=== PATIENT | female | born 1960 | race Two or more races ===

== ENCOUNTER 2023-05-27 08:45 | Day surgery (SDC) | payer BC ==
[2023-05-26 13:09] LABS: Hematocrit 44.4 % (36.0-46.0); Hemoglobin 14.4 g/dL (12.2-16.2); Mean Corpuscular Hemoglobin 30.5 pg (28.0-32.0); Mean Corpuscular Hgb Conc. 32.5 g/dL (32.0-36.0); Mean Corpuscular Volume 93.9 fL (80.0-100.0); Red Blood Cells 4.73 10^6/uL (4.0-5.20); Red Cell Distribution Width 14.1 % (11.8-14.3); White Blood Cell 17.7 10^3/uL (4.4-10.8)
[2023-05-26 13:12] LABS: Urine Bacteria NONE SEEN /hpf (None Seen); Urine Blood TRACE /uL (Negative); Urine Clarity Clear (Clear); Urine Protein, UAD Negative (Negative); Urine Specific Gravity 1.021 (1.001-1.035); Urine Urobilinogen Normal (Negative); Urine WBC 7 /hpf (0 - 5)
[2023-05-26 13:15] LABS: Band Neutrophils % (manual) 0; Basophils % (manual) 0 (0.0-2.0); Blast Cells 0; Eosinophils % (manual) 0 (0-7); INR 0.98 (0.9-1.15); Metamyelocytes % 0; Myelocytes % 0; Partial Thromboplastin Time 24.8 SEC (24.5-34.5); Promyelocytes % 0; Prothrombin Time 10.3 sec (9.3-11.8)
[2023-05-26 13:20] LABS: Urine Color Straw (Yellow)
[2023-05-26 13:48] LABS: Alanine Aminotransferase 24 U/L (7-40); Albumin 4.4 g/dL (3.2-4.8); Alkaline Phosphatase 98 U/L (46-116); Anion Gap 7.1 (5-15); Aspartate Aminotransferase 14 U/L (13-40); Calcium 9.8 mg/dL (8.5-10.1); Carbon Dioxide 23.9 mmol/L (20-30); Chloride 111 mmol/L (98-107); Glucose 105 mg/dL (74-106); Potassium 3.9 mmol/L (3.5-5.1); Sodium 142 mmol/L (136-145)
[2023-05-26 13:49] LABS: BUN/Creatinine Ratio 18.4 (10.0-20.0); Bilirubin, Total 0.9 mg/dL (0.2-1.0); Blood Urea Nitrogen 18 mg/dL (9-23)
[2023-05-26 13:51] LABS: Total Protein 6.7 g/dL (5.7-8.2)
[2023-05-26 15:23] LABS: Lymphocytes % (manual) 63 (10.0-50.0); Monocytes % (manual) 5 (0-12); Platelet Estimate Adequate; RBC Morphology Normal; Reactive Lymphocytes 4
[~2023-05-27] VITALS: Ht 160 cm; Wt 68.9 kg
[2023-05-27] MEDS ORDERED: CIPROFLOXACIN 400MG/200ML 200 ML IV ONE (12:31)
[2023-05-27] MEDS ORDERED: fentaNYL CITRATE 100 MCG/2 ML VL ONE (13:30)
[2023-05-27] MEDS ORDERED: MIDAZOLAM HCL 2MG/2ML 2ml VIAL (1mg/ml) ONE (13:31)
[2023-05-27] MEDS ORDERED: ceFAZolin 1GM/50ML 100 ML IV ONE (13:42)
[2023-05-27] MEDS ORDERED: ceFAZolin 1GM/50ML 50 ML IV ONE (14:11)
[2023-05-27] MEDS ORDERED: hydrALAZINE HCL 20 MG/ML VL ONE (14:28)
[2023-05-27] MEDS ORDERED: PROPOFOL 10 MG/ML 20 ML IV ONE ×2 (14:28→15:11)
[2023-05-27] MEDS ORDERED: ONDANSETRON HCL 4 MG/2 ML VIAL ONE (15:09)
[2023-05-27 15:15] VITALS: TEMP 87.3; O2SAT 10
[2023-05-27] MEDS ORDERED: ONDANSETRON HCL 4 MG/2 ML VIAL IV PRN (15:15)
[2023-05-27] MEDS: HYDROmorphone HCL 2 MG/ML VL/or syr IV PRN ×4 (15:52→16:22)
[2023-05-27 16:30] VITALS: BP 177/83; PULSE 61; RESP 14; O2SAT 98
== END 2023-05-27 16:40 | disposition home or self-care (01) ==
LOC: SUR 08:45
PROVIDERS: ATTEND Urology
DX: N13.2 Hydronephrosis with renal and ureteral calculous obstruction (principal)
CPT/HCPCS: 36415; 50590; 80053; 81001; 85007; 85027; 85610; 85730; 87086; J0360; J0690; J0744; J1170; J2250; J2405; J2704; J3010; J7040